=== PATIENT | male | born 1985 | race Hispanic/Latino ===

== ENCOUNTER → 2018-02-19 | Outpatient (CLI) | payer OTHER ==
--- NOTE | 2018-02-20 10:06 | Diagnostic Imaging Report ---
Examination: MRI SPINE LUMBAR WITHOUT CONTRAST History: Low back pain radiating to the bilateral lower extremities, left greater than right. Comparison studies: None Technique: Sagittal, coronal and axial T2 , sagittal T1 and STIR; axial spin density oblique. Findings: Number of lumbar vertebral bodies: Five. Alignment: Normal lordosis. No scoliosis. Soft tissues: No T2 hyperintense inflammatory changes. Posterior paraspinal soft tissues and muscles: No abnormality. Lower thoracic cord: Normal in signal and morphology. The tip of the conus is at T11-T12. Cauda equina: No masses. No arachnoiditis. Vertebrae: No fractures, infection or neoplasm. Degenerative changes: L1-L2 through L3-L4: No abnormalities. L4-L5: Small central disc protrusion with annular fissure. No canal or foraminal stenosis. Prior right laminectomy. L5-S1: No abnormalities. IMPRESSION: Small degenerative central disc protrusion with annular fissure at L4-L5 without canal or foraminal stenosis. Prior right laminectomy. Signed by: Dr. Leena Villalobos M.D. on 02/20/2018 10:02 AM
== END ==
LOC: MRI 17:08
PROVIDERS: ATTEND Family Medicine
DX: M51.26 Other intervertebral disc displacement, lumbar region (principal)
CPT/HCPCS: 72148